=== PATIENT | female | born 1980 | race Caucasian/White ===

== ENCOUNTER 2020-04-20 19:02 | Emergency (ER) | payer OTHER ==
[2020-04-20 19:09] VITALS: BP 138/92; PULSE 97; TEMP 98.5; BMI 39.6
== END 2020-04-20 20:22 | disposition home or self-care (01) ==
LOC: JERFT 19:02
DX: M25.512 Pain in left shoulder (principal)
CPT/HCPCS: 73030-TC-LT-FY; 99284-25

== ENCOUNTER 2024-10-02 06:45 | Day surgery (SDC) | payer BC ==
[2024-09-27 12:01] VITALS: BMI 32.8
[2024-10-02 08:29] LABS: INR 0.99 (0.83-1.09); PROTHROMBIN TIME (PATIENT) 10.9 SEC (9.7-13.0)
[2024-10-02 08:32] LABS: ACTIVATED PTT 30.1 SECONDS (25.2-36.5)
[2024-10-02] MEDS ORDERED: MIDAZOLAM HCL 2 MG/2 ML SINGLE DOSE VIAL ONE (08:32)
[2024-10-02] MEDS ORDERED: LIDOCAINE HCL/PF 2% SDV 5ML VIAL ONE (08:32)
[2024-10-02] MEDS ORDERED: PROPOFOL 20 ML ONE (08:32)
[2024-10-02] MEDS: ceFAZolin 2 GRAM PREMIX BAG IVPB ONE (09:35)
[2024-10-02] MEDS ORDERED: DEXAMETHASONE SOD PHOSPHATE 4 MG/1 ML VIAL ONE (09:36)
[2024-10-02] MEDS ORDERED: PHENYLEPHRINE HCL 10 MG/1 ML SINGLE DOSE VIAL ONE (09:42)
[2024-10-02] MEDS ORDERED: ONDANSETRON 4 MG/2 ML VIAL ONE (09:54)
[2024-10-02] MEDS ORDERED: KETOROLAC TROMETHAMINE 30 MG/1 ML VIAL ONE (09:54)
[2024-10-02] MEDS ORDERED: ONDANSETRON 4 MG/2 ML VIAL IVPUSH PRN (10:07)
[2024-10-02] MEDS ORDERED: PROMETHAZINE HCL 25 MG/1 ML VIAL IVPB PRN (10:07)
[2024-10-02] MEDS ORDERED: LACTATED RINGERS SOLUTION 1,000 ML IV SCH (10:15)
[2024-10-02] MEDS: ACETAMINOPHEN 1000 MG/100 ML BAG IVPB ONE (10:22)
[2024-10-02 11:41] VITALS: RESP 20
[2024-10-02 12:46] VITALS: BP 117/74; PULSE 74; TEMP 97.5
== END 2024-10-02 12:30 | disposition home or self-care (01) ==
LOC: JASU-SURG 06:45
PROVIDERS: ATTEND Obstetrics & Gynecology
PROC: 0U5B8ZZ Destruction of Endometrium, Via Natural or Artificial Opening Endoscopic (ICD-10-PCS; principal; 2024-10-02 09:00)
DX: N92.0 Excessive and frequent menstruation with regular cycle (principal)
CPT/HCPCS: 36415; 85610; 85730; 86850; 86900; 86901; 88305-TC; 94760